=== PATIENT | male | born 1965 | race Caucasian/White ===

== ENCOUNTER 2023-09-24 09:33 | Inpatient (IN) | payer MEDICARE, SELFPAY ==
--- NOTE | ~2023-09-24 | US_ITS ---
EXAMINATION: RIGHT LOWER EXTREMITY DEEP VENOUS ULTRASOUND CLINICAL INFORMATION: Right foot swelling. Recent travel. COMPARISON: None. TECHNIQUE: Duplex Doppler imaging with compression maneuvers were performed of the right lower extremity deep venous system. FINDINGS: The visualized common femoral, femoral and popliteal veins demonstrate normal compressibility and color flow without evidence of venous thrombosis. Visualized portions of the calf veins demonstrate normal color fill-in and/or compressibility suggesting patency. There is no evidence of a Ann's cyst. A few mildly prominent but normal-appearing lymph nodes within the right groin are nonspecific but possibly reactive. US/US venous duplex LE RT IMPRESSION: No evidence of deep venous thrombosis involving the right lower extremity.
--- NOTE | ~2023-09-24 | XR_ITS ---
EXAMINATION: XR FOOT, RIGHT CLINICAL INFORMATION: Right foot swelling and redness. Question osteomyelitis. COMPARISON: None available. TECHNIQUE: AP, lateral, and oblique views of the right foot. FINDINGS: Severe joint space narrowing with prominent bony remodeling and erosions throughout the midfoot, likely indicating Charcot arthropathy. Soft tissue ulceration and soft tissue swelling overlying the medial/plantar midfoot. Superimposed septic arthritis cannot be excluded. Severe joint space narrowing with marginal osteophytes at the 1st metatarsophalangeal joint and hallux sesamoids as well as at the 2nd and 3rd metatarsophalangeal joints and more moderate osteoarthritis throughout the interphalangeal joints. No acute fracture. XR/XR foot RT 2V IMPRESSION: 1. Severe joint space narrowing with prominent bony remodeling and erosions throughout the midfoot, likely indicating Charcot arthropathy. Soft tissue ulceration and soft tissue swelling overlying the medial/plantar midfoot. Superimposed septic arthritis cannot be excluded. 2. Severe osteoarthritis at the 1st metatarsophalangeal joint and hallux sesamoids as well as at the 2nd and 3rd metatarsophalangeal joints. More moderate osteoarthritis throughout the interphalangeal joints.
[2023-09-24 09:36] VITALS: BP 159/82; PULSE 73; RESP 19; TEMP 36.6; O2SAT 98; BMI 33.9
[2023-09-24 10:15] LABS: MANUAL DIFF FLAG NO
[2023-09-24 10:17] LABS: Basophils Absolute Auto 0.1 X10*3/uL (0.0-0.2); Basophils Percent Auto 0.7 % (0-2); Eosinophils Percent Auto 10.2 % (0-4); Hematocrit 42.8 % (42.0-52.0); Hemoglobin 15.5 g/dl (14.0-18.0); Imm Gran Abs Auto 0.03 X10*3/uL (0.00-0.03); Imm Gran Pct Auto 0.3 % (0.0-0.4); Lymphocytes Absolute Auto 3.3 X10*3/uL (1.2-4.9); Lymphocytes Percent Auto 32.5 % (20-40); Mean Corpuscular HGB Conc 36.2 g/dl (31.0-36.0); Mean Corpuscular Hemoglobin 31.8 pg (27.0-33.0); Mean Corpuscular Volume 87.9 fL (80.0-98.0); Mean Platelet Volume 9.7 fL (9.4-12.4); Monocytes Absolute Auto 1.1 X10*3/uL (0.1-1.2); Monocytes Percent Auto 10.7 % (2-11); Neutrophils Absolute Auto 4.6 x10*3/uL (2.0-8.3); Neutrophils Percent Auto 45.6 % (45-73); Platelet Count 241 X10*3/uL (160-400); Red Blood Count 4.87 X10*6/uL (4.60-5.80); Red Cell Distribution Width 11.6 % (11.0-16.0); White Blood Count 10.1 X10*3/uL (4.8-10.8)
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
[2023-09-24 10:26] LABS: Lactic Acid 1.6 mmol/L (0.5-2.0)
[2023-09-24 10:30] LABS: Alanine Aminotransferase 17 U/L (0-40); Albumin Level 3.4 g/dL (3.5-5.0); Alkaline Phosphatase 101 U/L (39-117); Anion Gap 13 (12-20); Aspartate Amino Transferase 12 U/L (5-37); Bilirubin Total 0.6 mg/dL (0.0-1.0); Blood Urea Nitrogen 12 mg/dL (9-16); C Reactive Protein 6.78 mg/dL (< or = 0.50); Carbon Dioxide 21 mmol/L (22-29); Chloride 105 mmol/L (96-108); Estimated Glomerular Filt Rate > 60; Glucose Random 301 mg/dL (60-115); Potassium 4.3 mmol/L (3.3-5.1); Sodium 135 mmol/L (135-145); Total Protein 7.4 g/dL (6.5-8.0)
--- NOTE | 2023-09-24 10:49 | PC.NURSE ---
BEDSIDE ULTRASOUND IS BEING DONE AT THIS TIME.
--- NOTE | 2023-09-24 11:11 | PC.NURSE ---
PT STATES THAT HE ATE BREAKFAST THIS AM AND DID NOT TAKE HIS POC THIS AM.
[2023-09-24 11:12] LABS: Erythrocyte Sedimentation Rate 31 MM/HR (0-15)
[2023-09-24 11:38] VITALS: BP 136/59; PULSE 65; RESP 16; TEMP 36.6; O2SAT 96
--- NOTE | 2023-09-24 12:52 | PC.NURSE ---
PT/FAMILY (3) AWARE OF PLAN OF CARE FOR ADMISSION TO HOSP.
[2023-09-24] MEDS: Piperacillin Sodium/Tazobactam 3.375 GM in 0.9 % Sodium Chloride 50 ML IV (13:04)
[2023-09-24] MEDS: vancomycin/NS 2,000 MG/500 ML PLAST..BAG 250 MG IV (13:56)
[2023-09-24 14:00] VITALS: BP 133/58; PULSE 73; RESP 17; TEMP 36.8; O2SAT 97
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
--- NOTE | 2023-09-24 14:28 | PHA.PROG ---
Admission Date/Time: Indication: Skin Weight in k.254 kg Adjusted body weight in K.382 [place] body weight in K Obesity Dosing Indication % IBW: Serum Creatinine - Last 168 Hours 09/24/23 10:10 Creatinine 0.83 Estimated CrCl and GFR - Last 168 Hours 09/24/23 10:10 Estim Creat Clear Calc 106.0 Estimated GFR > 60 Vancomycin Loading Dose: 2000 Current Vancomycin Dosing Regimen: 1000 mg Q12 Vancomycin Monitoring using AUC goal of 400 - 600 range with trough as surrogate marker: 501 Date and Time for next Vancomycin Level to be drawn: 09/26 @1200 Pharmacist Comments on Vancomycin Plan: Obese model used Vancomycin dosing will take advantage of [employer] as a clinical decision support tool that uses Bayesian modeling to calculate individual patient's pharmacokinetic parameters and forecast the patient's drug concentration time course with the target goal AUC 24 range of 400 - 600 mg/L/hr.
[2023-09-24 14:43] LABS: Estimated Average Glucose 229 mg/dL; Hemoglobin A1c % 9.6 % (<6.0)
[2023-09-24] MEDS: Enoxaparin Sodium 40 MG/0.4 ML SYRINGE SUBCUT (14:44)
[2023-09-24] MEDS: 0.9 % Sodium Chloride Flush 3 ML SYRINGE IVFLUSH ×2 (14:45→21:35)
--- NOTE | 2023-09-24 14:45 | PHA.MEDREC ---
Pharmacy Consult ? Medication Reconciliation Spoke with patients family member at bedside. They had a list of medications however, Shaka was the only one with directions. He was here visiting for 2 days so he did not bring any of his medications with him and cannot recall the directions for the other medications on the list. They were able to provide me with the pharmacy's phone number in [place] but it is closed today. Will leave a note for [facility] pharmacist to call tomorrow. ([facility] [phone]) Medications on Patient List: Lantus 60 units at bedtime Lisinopril Gabapentin Atorvastatin [place]-3 Vitamin D Jentadueto (linagliptan and metformin)
[2023-09-24 15:57] VITALS: BP 148/76; PULSE 70; RESP 18; TEMP 36.4; O2SAT 97
[2023-09-24 16:13] LABS: Glucose, Whole Blood 263 mg/dL (60-115)
[2023-09-24] MEDS: Insulin Lispro 100 UNIT/ML 3 ML VIAL SUBCUT ×2 (16:32→21:35)
[2023-09-24 16:35] VITALS: BMI 33.9
[2023-09-24] MEDS: Piperacillin Sodium/Tazobactam 4.5 GM in 0.9 % Sodium Chloride 100 ML IV (18:28)
[2023-09-24 20:00] VITALS: BP 137/67; PULSE 72; RESP 18; TEMP 36.3; O2SAT 93
[2023-09-24 20:51] LABS: Glucose, Whole Blood 390 mg/dL (60-115)
[2023-09-24] MEDS: Insulin Glargine,Hum.rec.anlog 100 UNIT/ML 10 ML VIAL 45 UNIT SUBCUT (21:35)
[2023-09-24] MEDS: Docusate Sodium 100 MG CAPSULE PO (21:36)
[2023-09-25] MEDS: Piperacillin Sodium/Tazobactam 4.5 GM in 0.9 % Sodium Chloride 100 ML IV ×2 (01:52→07:37)
[2023-09-25] MEDS: vancomycin HCL 1,000 MG in 0.9 % Sodium Chloride 250 ML 270 MG IV (02:42)
[2023-09-25 03:43] VITALS: BP 144/75; PULSE 74; RESP 18; TEMP 36.2; O2SAT 96
[2023-09-25 06:40] LABS: MANUAL DIFF FLAG NO
[2023-09-25 07:05] LABS: Basophils Absolute Auto 0.1 X10*3/uL (0.0-0.2); Basophils Percent Auto 0.7 % (0-2); Eosinophils Absolute Auto 1.2 X10*3/uL (0.0-0.4); Eosinophils Percent Auto 10.6 % (0-4); Hematocrit 41.2 % (42.0-52.0); Hemoglobin 14.9 g/dl (14.0-18.0); Imm Gran Abs Auto 0.04 X10*3/uL (0.00-0.03); Imm Gran Pct Auto 0.4 % (0.0-0.4); Lymphocytes Absolute Auto 3.6 X10*3/uL (1.2-4.9); Lymphocytes Percent Auto 32.9 % (20-40); Mean Corpuscular HGB Conc 36.2 g/dl (31.0-36.0); Mean Corpuscular Hemoglobin 31.6 pg (27.0-33.0); Mean Corpuscular Volume 87.3 fL (80.0-98.0); Mean Platelet Volume 10.2 fL (9.4-12.4); Monocytes Absolute Auto 1.1 X10*3/uL (0.1-1.2); Monocytes Percent Auto 9.9 % (2-11); Neutrophils Percent Auto 45.5 % (45-73); Platelet Count 241 X10*3/uL (160-400); Red Blood Count 4.72 X10*6/uL (4.60-5.80); Red Cell Distribution Width 11.6 % (11.0-16.0); White Blood Count 10.9 X10*3/uL (4.8-10.8)
[2023-09-25 07:16] LABS: Anion Gap 12 (12-20); Blood Urea Nitrogen 14 mg/dL (9-16); Carbon Dioxide 22 mmol/L (22-29); Chloride 105 mmol/L (96-108); Creatinine Clr Calc Pharmacy 101.1; Estimated Glomerular Filt Rate > 60; Glucose Random 313 mg/dL (60-115); Potassium 4.1 mmol/L (3.3-5.1); Sodium 135 mmol/L (135-145)
[2023-09-25 07:25] VITALS: BP 137/82; PULSE 66; RESP 18; TEMP 36; O2SAT 95
[2023-09-25] MEDS: Aspirin Enteric Coated 81 MG TABLET.DR PO (07:37)
[2023-09-25] MEDS: 0.9 % Sodium Chloride Flush 3 ML SYRINGE IVFLUSH (07:37)
[2023-09-25] MEDS: lisinopriL 5 MG TABLET PO (07:37)
[2023-09-25 07:49] LABS: Glucose, Whole Blood 259 mg/dL (60-115)
[2023-09-25] MEDS: Insulin Lispro 100 UNIT/ML 3 ML VIAL SUBCUT (07:50)
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
--- NOTE | 2023-09-25 09:35 | MHC.CM.PN ---
pt returning to [place] where he lives he will follow up with his pcp
== END 2023-09-25 11:11 | disposition home or self-care (01) | DRG 603 ==
LOC: HO.ED 09:52 → HO.EDOVER 14:32 → HO.S3 15:16
PROVIDERS: Physician Assistant; Admitting Provider Physician Assistant; Emergency Provider Student in an Organized Health Care Education/Training Program; Visit Provider Internal Medicine
DX: L03.115 Cellulitis of right lower limb (principal); E11.65 Type 2 diabetes mellitus with hyperglycemia; E11.610 Type 2 diabetes mellitus with diabetic neuropathic arthropathy; Z79.4 Long term (current) use of insulin; Z79.82 Long term (current) use of aspirin; Z79.899 Other long term (current) drug therapy
CPT/HCPCS: 36415; 73620; 80048; 80053; 82947; 83036; 83605; 85025; 85652; 86140; 87040; 87070; 87147; 87205; 93971; 99285; J1650; J2543; J3370

== ENCOUNTER → 2023-09-24 14:08 | Outpatient (BNV) | payer SELFPAY | PROVIDERS: Admitting Provider Physician Assistant; Emergency Provider Student in an Organized Health Care Education/Training Program; Visit Provider Physician Assistant | DX: L03.115 Cellulitis of right lower limb (principal) | CPT/HCPCS: 99223; 99239 ==